=== PATIENT | female | born 1970 | race Two or more races ===

== ENCOUNTER 2018-01-19 18:55 | Emergency (ER) | payer MEDICAID, OTHER ==
[~2018-01-19] VITALS: Ht 134.6 cm; Wt 77.0 kg
[2018-01-19] MEDS ORDERED: ONDANSETRON HCL 4MG/2ML INJ IV STA (22:45)
[2018-01-19] MEDS ORDERED: MORPHINE SULFATE 4 MG/ML CPJ (NOT FOR IM USE) IV STA (22:45)
[2018-01-19] MEDS ORDERED: SODIUM CHLORIDE 0.9% 1,000 ML IV ONE (22:45)
[2018-01-19 23:12] LABS: BASOPHILS % 0.5 % (0.0-2.0); EOSINOPHILS % 2.2 % (0.0-5.0); HEMATOCRIT. 44.9 % (36.0-48.0); HEMOGLOBIN. 15.5 g/dL (12.0-16.0); LYMPHOCYTES % 25.3 % (20.0-50.0); MEAN CORPUSCULAR HEMOGLOBIN 30.6 pg (28.0-32.0); MEAN CORPUSCULAR VOLUME 88.6 fL (81.0-99.0); MONOCYTES % 9.5 % (2.0-8.0); NEUTROPHILS % 62.5 % (40.0-76.0); PLATELET 287 x1000/uL (130-400); RED BLOOD CELL COUNT 5.06 mill/uL (4.2-5.4); RED CELL DISTRIBUTION WIDTH 15.1 % (11.6-14.6)
[2018-01-19 23:14] LABS: CHLORIDE 100 mEq/L (98-107)
[2018-01-20 00:50] LABS: CLARITY URINE CLEAR (CLEAR); COLOR URINE YELLOW (YELLOW); KETONES URINE NEGATIVE (NEGATIVE); LEUKOCYTE ESTERASE URINE NEGATIVE (NEGATIVE); NITRITE URINE NEGATIVE (NEGATIVE); OCCULT BLOOD URINE NEGATIVE (NEGATIVE); PH URINE 7.5 (4.5-8.0); PROTEIN URINE NEGATIVE (NEGATIVE); SPECIFIC GRAVITY URINE 1.023 (1.005-1.030); UROBILINOGEN URINE 0.2 E.U./dL (0.2-1.0)
[2018-01-20 01:12] VITALS: BP 147/99
[2018-01-20] MEDS ORDERED: CEFTRIAXONE 1 G PREMIX 50 ML IV ONE (01:30)
[2018-01-20] MEDS ORDERED: METRONIDAZOLE 500 MG PREMIX 100 ML IV ONE (01:30)
== END 2018-01-20 02:30 | disposition home or self-care (01) ==
LOC: ER 18:55
DX: K80.20 Calculus of gallbladder without cholecystitis without obstruction (principal); K82.9 Disease of gallbladder, unspecified; I10 Essential (primary) hypertension; Z98.890 Other specified postprocedural states
CPT/HCPCS: 36415; 74176; 76705; 80053; 81003; 83690; 85025; 85610; 87040; 96361; 96374; 99284; J2405; J7030

== ENCOUNTER 2018-01-30 23:39 | Inpatient (IN) | payer MEDICAID ==
[~2018-01-30] VITALS: Ht 137.2 cm; Wt 76.2 kg
[2018-01-31 02:56] LABS: PROTHROMBIN TIME 10.1 sec (9.1-11.1)
[2018-01-31 02:57] LABS: CHLORIDE 102 mEq/L (98-107)
[2018-01-31 03:03] LABS: HCG SCREEN NEGATIVE
[2018-01-31 03:07] LABS: BASOPHILS % 0.9 % (0.0-2.0); EOSINOPHILS % 2.4 % (0.0-5.0); HEMATOCRIT. 42.3 % (36.0-48.0); HEMOGLOBIN. 14.6 g/dL (12.0-16.0); LYMPHOCYTES % 28.5 % (20.0-50.0); MEAN CORPUSCULAR HEMOGLOBIN 30.5 pg (28.0-32.0); MEAN CORPUSCULAR VOLUME 88.6 fL (81.0-99.0); MEAN PLATELET VOLUME 9.1 fl (7.4-10.4); MONOCYTES % 9.4 % (2.0-8.0); NEUTROPHILS % 58.8 % (40.0-76.0); PLATELET 307 x1000/uL (130-400); RED BLOOD CELL COUNT 4.77 mill/uL (4.2-5.4); RED CELL DISTRIBUTION WIDTH 14.9 % (11.6-14.6)
[2018-01-31 03:51] LABS: CLARITY URINE CLEAR (CLEAR); COLOR URINE YELLOW (YELLOW); KETONES URINE NEGATIVE (NEGATIVE); LEUKOCYTE ESTERASE URINE 1+ (NEGATIVE); NITRITE URINE NEGATIVE (NEGATIVE); OCCULT BLOOD URINE NEGATIVE (NEGATIVE); PROTEIN URINE NEGATIVE (NEGATIVE); UROBILINOGEN URINE 0.2 E.U./dL (0.2-1.0)
[2018-01-31] MEDS ORDERED: PIPERACILLIN/TAZOBACTAM 3.375GM/50ML PREMIX IV ONE (05:15)
[2018-01-31] MEDS ORDERED: PIPERACILLIN/TAZ 3.375G PREMIX 50 ML IV NR (05:15)
[2018-01-31] MEDS ORDERED: SODIUM CHLORIDE 0.9% 500 ML IV ONE (05:15)
[2018-01-31 10:00] VITALS: BP 121/71
[2018-01-31] MEDS ORDERED: CLONIDINE 0.1MG TABLET PO PRN (10:45)
[2018-01-31] MEDS ORDERED: IPRATROPIUM/ALBUTEROL 0.5-3(2.5)MG/3ML NEB INH PRN (10:45)
[2018-01-31] MEDS ORDERED: ONDANSETRON HCL 4MG/2ML INJ IV PRN (10:45)
[2018-01-31] MEDS ORDERED: MAGNESIUM/ALUMINUM HYDROXIDE/SIMETHICONE 30ML UDC PO PRN (10:45)
[2018-01-31] MEDS ORDERED: ACETAMINOPHEN 325MG TABLET PO PRN (10:45)
[2018-01-31 11:13] VITALS: BP 114/72
[2018-01-31] MEDS ORDERED: LISI-604 MT (11:29)
[2018-01-31] MEDS ORDERED: HYDR25TA MT (11:29)
[2018-01-31 12:00] VITALS: BP 106/69
[2018-01-31] MEDS: HYDROCODONE/ACETAMINOPHEN 5/325MG TABLET PO PRN ×2 (14:16→20:24)
[2018-01-31] MEDS: SODIUM CHLORIDE 0.9% 1,000 ML IV SCH (14:18)
[2018-01-31 16:00] VITALS: BP 112/77
[2018-01-31 20:00] VITALS: BP 117/86
[2018-02-01] VITALS: BP 113/78
[2018-02-01] MEDS: SODIUM CHLORIDE 0.9% 1,000 ML IV SCH ×2 (03:39→13:13)
[2018-02-01] MEDS: HYDROCODONE/ACETAMINOPHEN 5/325MG TABLET PO PRN ×2 (03:40→08:43)
[2018-02-01 04:00] VITALS: BP 124/82
[2018-02-01 06:40] LABS: BASOPHILS % 0.9 % (0.0-2.0); EOSINOPHILS % 2.9 % (0.0-5.0); HEMOGLOBIN. 13.9 g/dL (12.0-16.0); LYMPHOCYTES % 26.8 % (20.0-50.0); MEAN CORPUSCULAR HEMOGLOBIN 30.4 pg (28.0-32.0); MEAN CORPUSCULAR VOLUME 89.6 fL (81.0-99.0); MEAN PLATELET VOLUME 9.1 fl (7.4-10.4); MONOCYTES % 10.2 % (2.0-8.0); NEUTROPHILS % 59.2 % (40.0-76.0); PLATELET 279 x1000/uL (130-400); RED BLOOD CELL COUNT 4.58 mill/uL (4.2-5.4); RED CELL DISTRIBUTION WIDTH 14.6 % (11.6-14.6)
[2018-02-01 06:56] LABS: CHLORIDE 107 mEq/L (98-107)
[2018-02-01 07:10] LABS: LDL CHOLESTEROL 86 mg/dL (5-100)
[2018-02-01 07:12] LABS: HDL CHOLESTEROL 41 mg/dL (40-59)
[2018-02-01 07:13] LABS: T4 FREE 0.97 ng/dL (0.76-1.46)
[2018-02-01 08:00] VITALS: BP 127/87
[2018-02-01 12:00] VITALS: BP 131/90
[2018-02-01 16:00] VITALS: BP 113/79
[2018-02-01 20:00] VITALS: BP 133/89
[2018-02-02] VITALS: BP 138/89
[2018-02-02 04:00] VITALS: BP 121/85
[2018-02-02] MEDS: SODIUM CHLORIDE 0.9% 1,000 ML IV SCH ×2 (05:29→15:44)
[2018-02-02 06:36] LABS: BASOPHILS % 0.9 % (0.0-2.0); EOSINOPHILS % 3.5 % (0.0-5.0); HEMATOCRIT. 41.3 % (36.0-48.0); HEMOGLOBIN. 14.2 g/dL (12.0-16.0); LYMPHOCYTES % 35.2 % (20.0-50.0); MEAN CORPUSCULAR HEMOGLOBIN 30.4 pg (28.0-32.0); MEAN CORPUSCULAR VOLUME 88.6 fL (81.0-99.0); MONOCYTES % 10.7 % (2.0-8.0); NEUTROPHILS % 49.7 % (40.0-76.0); PLATELET 295 x1000/uL (130-400); RED BLOOD CELL COUNT 4.66 mill/uL (4.2-5.4); RED CELL DISTRIBUTION WIDTH 14.5 % (11.6-14.6)
[2018-02-02 06:57] LABS: CHLORIDE 106 mEq/L (98-107)
[2018-02-02 08:00] VITALS: BP 147/77
[2018-02-02 12:00] VITALS: BP 127/82
[2018-02-02] MEDS ORDERED: LEVOFLOXACIN 500MG PREMIX 100 ML IV SCH (13:00)
[2018-02-02] MEDS ORDERED: METRONIDAZOLE 500 MG PREMIX 100 ML IV SCH (13:30)
[2018-02-02 16:00] VITALS: BP 117/81
[2018-02-02 16:40] VITALS: BP 117/81
== END 2018-02-02 17:37 | disposition home or self-care (01) ==
LOC: ER 23:39 → 6EST 01-31 05:10 → EDBEDREQ 01-31 05:12 → EDBEDREQTM 01-31 05:12 → ENRESERV 01-31 09:20
PROVIDERS: ADMIT Internal Medicine; ATTEND Internal Medicine
PROC: CF241ZZ Tomographic (Tomo) Nuclear Medicine Imaging of Gallbladder using Technetium 99m (Tc-99m) (ICD-10-PCS; principal; 2018-02-01)
DX: K80.00 Calculus of gallbladder with acute cholecystitis without obstruction (principal); K76.0 Fatty (change of) liver, not elsewhere classified; E66.01 Morbid (severe) obesity due to excess calories; E11.9 Type 2 diabetes mellitus without complications; I10 Essential (primary) hypertension; Z68.41 Body mass index [BMI] 40.0-44.9, adult; Z98.891 History of uterine scar from previous surgery
CPT/HCPCS: 36415; 76700; 78227; 80048; 80061; 84439; 84443; 84481; 84703; 93005; 93970; 96365; 96375; 99285; A9537; J1956; J2405; J2543; J3490; J7030; J7040